=== PATIENT | female | born 1945 | race Caucasian/White ===

== ENCOUNTER 2017-09-16 17:16 | Emergency (ER) | payer OTHER, MEDICARE ==
--- NOTE | 2017-09-16 17:22 | PDOC ---
History of Present Illness <Beckie Davila - Last Filed: 09/16/17 18:32> - General History Source: Patient Exam Limitations: No Limitations - History of Present Illness Initial Comments: 09/16/17 18:44 The patient is a 72 year old female with a significant PMH of lung ca, COPD, and hypertension who presents to the emergency department with a left arm injury since 2 days ago. The patient reports that she fell and hit her hand and wednesday night. The patient reports associated pain and bruising of her left arm . the patient reports that she went to an urgent care facility today by which they sent her to the ED to get a CT. The patient reports that she has never had an incident like this in the past. She reports some instances of intermittent vomiting non associated with her injury. She denies any other symptoms. She denies and fever, chills,nausea, diarrhea, constipation or urinary symptoms the patient denies any chest pain, shortness of breath, headache and dizziness. The patient denies any other complaints. <Marcy Toussaint - Last Filed: 09/16/17 18:46> - General Chief Complaint: Injury Stated Complaint: left arm pain fall Time Seen by Provider: 09/16/17 17:22 Past History - Past Medical History Cancer: Yes (LUNG-SMALL Cells, PULMONARY FIBROSIS) COPD: Yes (EMPHYSEMA) HTN: Yes - Surgical History Abdominal Surgery: Yes (HERNIA WITH MESH) Lung Surgery: (rt lung wedge resection 2013) Orthopedic Surgery: (Rt shoulder Replacement 01/02) - Suicide/Smoking/Psychosocial Hx Smoking History: Current every day smoker Have you smoked in the past 12 months: Yes Number of Cigarettes Smoked Daily: 20 'Breaking Loose' booklet given: 02/20/15 Hx Alcohol Use: No Drug/Substance Use Hx: No Substance Use Type: None <Beckie Davila - Last Filed: 09/16/17 18:32> <Marcy Toussaint - Last Filed: 09/16/17 18:46> - Past Medical History Allergies/Adverse Reactions: Allergies Allergy/AdvReac Type Severity Reaction Status Date / Time Penicillins Allergy Hives Verified 09/16/17 17:20 Home Medications: Ambulatory Orders Losartan Potassium 50 mg PO DAILY 02/20/15 Mometasone/Formoterol [Dulera 200 Mcg/5 Mcg Inhaler] 2 inh IH BID 02/20/15 Tiotropium [place] [Spiriva] 1 inh PO DAILY 02/20/15 Zolpidem Tartrate [Ambien] 5 mg PO HS 02/20/15 Diltiazem Cd [Cardizem Cd -] 120 mg PO DAILY #1 cap.cd.24h 02/28/15 Metoprolol Tartrate [Lopressor -] 50 mg PO BID #1 tablet 02/28/15 Potassium Chloride [K-Dur -] 20 meq PO DAILY #1 tablet.er 02/28/15 Apixaban [Eliquis] 5 mg PO BID 09/16/17 Furosemide [Lasix -] 20 mg PO DAILY 09/16/17 Review of Systems - Review of Systems Able to Perform ROS?: Yes Comments:: 09/16/17 18:45 GENERAL/CONSTITUTIONAL: No fever or chills. No weakness. HEAD, EYES, EARS, NOSE AND THROAT: No change in vision. No ear pain or discharge. No sore throat. CARDIOVASCULAR: No chest pain or shortness of breath. RESPIRATORY: No cough, wheezing, or hemoptysis. GASTROINTESTINAL: No nausea, vomiting, diarrhea or constipation. GENITOURINARY: No dysuria, frequency, or change in urination. MUSCULOSKELETAL: +(+)left arm injury.. No neck or back pain. SKIN: No rash NEUROLOGIC: No headache, vertigo, loss of consciousness, or change in strength/ sensation. ENDOCRINE: No increased thirst. No abnormal weight change. HEMATOLOGIC/LYMPHATIC: No anemia, easy bleeding, or history of blood clots. ALLERGIC/IMMUNOLOGIC: No hives or skin allergy. <Marcy Toussaint - Last Filed: 09/16/17 18:46> *Physical Exam - Physical Exam Comments: GENERAL: Awake, alert, and fully oriented, in no acute distress HEAD: No signs of trauma EYES: PERRLA, EOMI, sclera anicteric, conjunctiva clear ENT: Auricles normal inspection, hearing grossly normal, nares patent, oropharynx clear without exudates. Moist mucosa NECK: Normal ROM, supple, no lymphadenopathy, JVD, or masses EXTREMITIES: L upper arm and elbow with ecchymosis. +FROM. Remainder of extremities with normal range of motion, no edema. No clubbing or cyanosis. No cords, erythema, or tenderness NEUROLOGICAL: Cranial nerves II through XII grossly intact. Normal speech, normal gait SKIN: Warm, Dry, normal turgor, no rashes. +Skin tear 2.5 cm diameter to L upper arm. <Beckie Davila - Last Filed: 09/16/17 18:32> - Vital Signs Last Vital Signs Temp Pulse Resp BP Pulse Ox 97.7 F 65 18 150/93 98 09/16/17 17:19 09/16/17 17:19 09/16/17 17:19 09/16/17 18:15 09/16/17 17:19 <Marcy Toussaint - Last Filed: 09/16/17 18:46> Medical Decision Making - Medical Decision Making 09/16/17 18:32 Skin tear dressed with xeroform and sterile gauze. Counseled patient not to use peroxide, as this may cause damage to tissue. Stable for DC home. <Beckie Davila - Last Filed: 09/16/17 18:32> *DC/Admit/Observation/Transfer - Discharge Dispostion Decision to Admit order: No <Beckie Davila - Last Filed: 09/16/17 18:32> - Attestations Scribe Attestion: 09/16/17 18:45 Documentation prepared by Marcy Toussaint, acting as medical fee clerk for Beckie Davila MD. <Marcy Toussaint - Last Filed: 09/16/17 18:46> Diagnosis at time of Disposition: Skin tear Fall Qualifiers: Encounter type: initial encounter Qualified Code(s): W19.XXXA - Unspecified fall, initial encounter Shoulder pain Qualifiers: Chronicity: acute Laterality: left Qualified Code(s): M25.512 - Pain in left shoulder - Discharge Dispostion Disposition: HOME Condition at time of disposition: Stable - Referrals Referrals: Joshua Thomas MD [Staff Physician] - - Patient Instructions Printed Discharge Instructions: Smoking Cessation for Older Adults: It's Not Too Late!, How to Prevent Falls, DI for Abrasion
[2017-09-16 17:37] VITALS: PULSE 65; TEMP 97.7; BMI 23.8
[2017-09-16 18:17] VITALS: BP 150/93
== END 2017-09-16 18:42 | disposition home or self-care (01) ==
LOC: FER 17:16
DX: S41.102D Unspecified open wound of left upper arm, subsequent encounter (principal); W18.30XD Fall on same level, unspecified, subsequent encounter; M25.512 Pain in left shoulder; I10 Essential (primary) hypertension; J43.9 Emphysema, unspecified; J84.10 Pulmonary fibrosis, unspecified; F17.210 Nicotine dependence, cigarettes, uncomplicated; Z85.118 Personal history of other malignant neoplasm of bronchus and lung; Z88.0 Allergy status to penicillin
CPT/HCPCS: 73060-TC-LT-FY; 73070-TC-LT-FY; 99282-25

== ENCOUNTER 2018-02-03 15:32 | Emergency (ER) | payer OTHER, MEDICARE ==
--- NOTE | 2018-02-03 15:46 | PDOC ---
Rapid Medical Evaluation Time Seen by Provider: 02/03/18 15:40 Medical Evaluation: Allergies Allergy/AdvReac Type Severity Reaction Status Date / Time Penicillins Allergy Hives Verified 02/03/18 15:35 02/03/18 15:41 Pt presents to the ED for coughing up blood for one week. Was seen by Dr. Lincoln. Pt reports having swelling in her L leg yesterday. Exam: NAD, No edema to the L leg at this time Orders: Labs, CXR, IV, EKG, Leg US Pt to proceed to the ED for further evaluation Discharge Disposition - Diagnosis Coughing up blood - Referrals Referrals: Joshua Thomas MD [Primary Care Provider] - - Patient Instructions - Post Discharge Activity
[2018-02-03 15:47] VITALS: TEMP 97.8; BMI 28.3
--- NOTE | 2018-02-03 16:08 | PDOC ---
Attending Attestation - HPI HPI: 72 y.o female with pmhx of lung CA, COPD, HTN, who presents today with hemoptysis 1 week ago. She was prescribed azithromycin and the hemoptysis resolved. However, she continues to experience SOB while lying down. 02/03/18 17:32 - Physicial Exam PE: GENERAL: Awake, alert, and fully oriented, in no acute distress. Speaking in full sentences. HEAD: No signs of trauma EYES: PERRLA, EOMI, sclera anicteric, conjunctiva clear ENT: Auricles normal inspection, hearing grossly normal, nares patent, oropharynx clear without exudates. Moist mucosa NECK: Normal ROM, supple, no lymphadenopathy, JVD, or masses LUNGS: +coarse lung sounds bilaterally with wheezing and rhonchi. HEART: Regular rate and rhythm, normal S1 and S2, no murmurs, rubs or gallops ABDOMEN: Soft, nontender, normoactive bowel sounds. No guarding, no rebound. No masses EXTREMITIES: There is venous stasis swelling of the bilateral lower extremities. No calf tenderness. Normal range of motion. No clubbing or cyanosis. No cords, erythema, or tenderness NEUROLOGICAL: Cranial nerves II through XII grossly intact. Normal speech, normal gait SKIN: Warm, Dry, normal turgor, no rashes or lesions noted. 02/03/18 17:36 <Josephine Patel - Last Filed: 02/03/18 17:36> - Resident Resident Name: Kassidy Burrows - ED Attending Attestation I have performed the following: I have examined & evaluated the patient, The case was reviewed & discussed with the resident, I agree w/resident's findings & plan, Exceptions are as noted - Medical Decision Making 02/03/18 16:07 I, Dr. Leslie Starks, DO, attest that this document has been prepared under my direction and personally reviewed by me in its entirety. I further attest, that it accurately reflects all work, treatment, procedures and medical decision -making performed by me. 02/03/18 17:00 a/p: 72yo female with coughing up blood last week which has since resolved and poss pna vs chf vs copd -states change in cough x 2 weeks -hemoptysis last week - seen by Dr. Thomas who put her on azithromycin, which improved her cough and hemoptysis resolved -no f/c -still sob when she lays flat -hx of chf and copd -will send labs, bnp -cxr -bedside ultrasound negative for DVT and +b lines to RUL, RLL, LLL -poss mild chf - will send labs -pt is NAD and speaking in full sentences 02/03/18 20:33 cxr clear duplex ultrasound +bakers cyst but no dvt labs stable call placed to PMD 02/03/18 21:56 pt feeling better and requesting to go home stable for d/c to home for follow up with Dr. Thomas as an outpt <Leslie Starks - Last Filed: 02/03/18 21:57> Heart Score/ECG Review - ECG Intrepretation Comment:: 02/03/18 17:30 afib at 53, l axis, q waves septally that are age indeterminate, q waves inferiorly that are age indeterminate, no acute st/t wave findings <Leslie Starks - Last Filed: 02/03/18 21:57>
[2018-02-03 17:28] LABS: BASO % 1.2 % (0-2.0); EOS % 0.4 % (0-4.5); HEMATOCRIT 40.6 % (32.4-45.2); LYMPH % 25.6 % (8-40); MCH 36.5 pg (25.7-33.7); MCHC 34.5 g/dl (32.0-36.0); MEAN PLT VOLUME 7.7 fl (7.5-11.1); MONO % 6.8 % (3.8-10.2); PLATELET COUNT 273 K/MM3 (134-434); RBC 3.83 M/mm3 (3.60-5.2); RDW 14.4 % (11.6-15.6); WHITE BLOOD COUNT 7.4 K/mm3 (4.0-10.0)
[2018-02-03] MEDS ORDERED: ACETAMINOPHEN 325 MG TABLET (FP) PO ONE (17:30)
[2018-02-03 17:48] LABS: INR 1.44 (0.83-1.09); PROTHROMBIN TIME (PATIENT) 17.1 SEC (9.7-13.0)
[2018-02-03] MEDS ORDERED: ACETAMINOPHEN 325 MG TABLET (FP) ONE (17:51)
--- NOTE | 2018-02-03 17:56 | PDOC ---
History of Present Illness - General Chief Complaint: Hemoptysis Stated Complaint: PCP SENT Time Seen by Provider: 02/03/18 15:40 History Source: Patient Exam Limitations: No Limitations - History of Present Illness Initial Comments: Pt is a 72 yo F, with PMH of lung CA (multiple resections, chemo, and radiation over past few years), COPD (no home O2 and ambulates on her own), pulmonary fibrosis, HTN, and A-fib (on Eliquis), who is presenting with complaints of hemoptysis 1 week ago which has resolved. Pt states she has clear sputum production at baseline, but about 1 week ago, she noticed "small amounts" of BRB mixed into the sputum. Pt saw her PCP (Dr. Lincoln), who prescribed Azithromycin 250 mg x5 days, which resolved the pts hemoptysis over the next 2 days. Pt currently complains of overall "feeling bad," though she cannot specify what is bothering her. She states she is here because her PCP told her to come to the ER straight after his last visit and wanted a chest x-ray to be done. She also noted that she had LLE swelling "for a few days last week" which has also resolved, and denies any recent travel/bed-rest or worsening SOB. Pt denies any fevers/chills, headache, vision changes, chest pain, palpitations, SOB change from baseline, nausea/vomiting, abdominal pain, urinary symptoms, or diarrhea/constipation. PCP: Dr. Lincoln Pt smokes 1 ppd x40 years. Pt denies alcohol or drug use. Pt denies any recent travel or sick contacts. 02/03/18 18:26 02/03/18 19:26 Past History - Travel Traveled outside of the country in the last 30 days: No Close contact w/someone who was outside of country & ill: No - Past Medical History Allergies/Adverse Reactions: Allergies Allergy/AdvReac Type Severity Reaction Status Date / Time Penicillins Allergy Hives Verified 02/03/18 15:35 Home Medications: Ambulatory Orders Losartan Potassium 50 mg PO DAILY 02/20/15 Mometasone/Formoterol [Dulera 200 Mcg/5 Mcg Inhaler] 2 inh IH BID 02/20/15 Tiotropium [place] [Spiriva] 1 inh PO DAILY 02/20/15 Zolpidem Tartrate [Ambien] 5 mg PO HS 02/20/15 Diltiazem Cd [Cardizem Cd -] 120 mg PO DAILY #1 cap.cd.24h 02/28/15 Metoprolol Tartrate [Lopressor -] 50 mg PO BID #1 tablet 02/28/15 Potassium Chloride [K-Dur -] 20 meq PO DAILY #1 tablet.er 02/28/15 Apixaban [Eliquis] 5 mg PO BID 09/16/17 Furosemide [Lasix -] 20 mg PO DAILY 09/16/17 Cancer: Yes (LUNG-SMALL Cells, PULMONARY FIBROSIS) COPD: Yes (EMPHYSEMA) HTN: Yes Seizures: Yes - Surgical History Abdominal Surgery: Yes (HERNIA WITH MESH) Lung Surgery: (rt lung wedge resection 2013) Orthopedic Surgery: (Rt shoulder Replacement 01/02) - Immunization History Immunization Up to Date: Yes - Suicide/Smoking/Psychosocial Hx Smoking History: Never smoked Have you smoked in the past 12 months: Yes Number of Cigarettes Smoked Daily: 20 Information on smoking cessation initiated: No 'Breaking Loose' booklet given: 02/20/15 Hx Alcohol Use: No Drug/Substance Use Hx: No Substance Use Type: None Review of Systems - Review of Systems Able to Perform ROS?: Yes Is the patient limited Urdu proficient: No Constitutional: Yes: Weight Stable. No: Chills, Diaphoresis, Fever, Loss of Appetite, Weakness HEENTM: No: Blurred Vision, Double Vision, Nose Congestion, Hearing Loss, Throat Pain, Throat Swelling, Difficulty Swallowing Respiratory: Yes: Cough, Productive cough, Hemoptysis. No: Orthopnea, Shortness of Breath, Wheezing Cardiac (ROS): No: Chest Pain, Edema, Irregular Heart Rate, Lightheadedness, Palpitations, Syncope, Chest Tightness ABD/GI: No: Abdominal Distended, Constipated, Diarrhea, Nausea, Poor Appetite, Poor Fluid Intake, Vomiting : No: Burning, Dysuria, Frequency, Hematuria, Pain, Urgency Musculoskeletal: Yes: Back Pain (chronic (scoliosis)). No: Joint Pain, Muscle Weakness Integumentary: Yes: Dryness (b/l LE). No: Rash Neurological: No: Headache, Numbness, Tremors, Weakness, Unsteady Gait, Ataxia, Dizziness Psychiatric: No: Sleep Pattern Change, Change in Appetite Endocrine: No: Increased Urine, Change in Weight Hematologic/Lymphatic: No: Anemia, Blood Clots, Easy Bleeding, Easy Bruising All Other Systems: Reviewed and Negative *Physical Exam - Vital Signs Last Vital Signs Temp Pulse Resp BP Pulse Ox 97.8 F 76 16 142/102 H 100 02/03/18 15:35 02/03/18 15:35 02/03/18 15:35 02/03/18 15:35 02/03/18 15:35 - Physical Exam General Appearance: Yes: Nourished, Appropriately Dressed ED Treatment Course - LABORATORY CBC & Chemistry Diagram: 02/03/18 17:15 02/03/18 17:15 - ADDITIONAL ORDERS Additional order review: 02/03/18 17:15 RBC 3.83 MCV 106.0 H MCHC 34.5 RDW 14.4 MPV 7.7 Neutrophils % 66.0 Lymphocytes % 25.6 Monocytes % 6.8 Eosinophils % 0.4 D Basophils % 1.2 - RADIOLOGY Radiology Studies Ordered: Category Date Time Status DUPLEX VASCUL US-2LEGS [US] Stat Ultrasound 02/03/18 16:37 Ordered Medical Decision Making - Medical Decision Making Pt was seen at bedside, also will be seen by attending Dr. Starks. Pt presenting with complaints of hemoptysis 1 week ago which has resolved. Pt has PMH of lung CA (multiple resections, chemo, and radiation over past few years), COPD (no home O2), pulmonary fibrosis, HTN, and A-fib (on Eliquis). Pt states she has clear sputum production at baseline, but over the past week, she noticed "small amounts" of BRB mixed into the sputum. Pt saw her PCP (Dr. Lincoln), who prescribed Azithromycin 250 mg x5 days, which resolved the pts hemoptysis. Pt currently complains of overall "feeling bad," though she cannot specify what is bothering her. She states she is here because her PCP told her to come to the ER straight after his last visit and wanted a chest x- ray to be done. She also noted that she had LLE swelling "for a few days" which has also received, and denies any recent travel/bed-rest or worsening SOB. Pt denies any fevers/chills, headache, vision changes, chest pain, palpitations, SOB change from baseline, nausea/vomiting, abdominal pain, urinary symptoms, or diarrhea/constipation. PE showed coarse breath sounds and wheezing over left-sided lung nevarez, anterior and posterior. No JVD or heart murmurs. No abdominal tenderness. No pitting pedal edema, but +severe varicose veins b/l LE, with hyperkeratosis on plantar feet b/l, with scaling of skin. Considering pneumonia vs COPD exacerbation vs CHF. Minimal concern for PE, as pt anti-coagulated and lung CA has resolved with resection and chemo. Will obtain b/l LE doppler to r/o clots. Ordered work-up including CBC, CMP, BNP, chest x-ray, and b/l LE doppler. Provided 650 mg PO tylenol for improvement of back pain (pt has scoliosis and baseline back pain, for which she takes tylenol at home. Pending labs to determine CHF vs COPD/pneumonia and further interventions (lasix vs breathing treatment). Will continue to reassess pt and monitor for symptomatic improvement. 02/03/18 17:40 CBC WNL for pt, no increased WBC. Bedside chest US showed b-lines and pleural effusion. Bedside LE doppler showed compressible veins, no obvious clots. 02/03/18 17:59 ECG showed A-flutter, HR 53, QTc 463, QRS 92. Mild LAD, no ST segment changes. 02/03/18 18:07 CMP generally WNL. INR 1.44 BNP 1522. Pending pt chest x-ray and b/l LE doppler US. 02/03/18 18:17 [id number] RAD/CHEST PA & LAT Chest: Cough. 2 views the chest have been submitted. Since 03/28/2015, again is a scoliosis with convexity to the right. There is a large heart, unfolded aorta and it appears to be increased interstitial lung changes. The findings are more prominent on the left than the right are some bullous changes. Increased interstitial changes on the right could represent some chronic lung disease. The angles are sharp and the soft tissues are intact. There are degenerative changes with wedging. There is a right shoulder replacement. Correlation recommended. For more complete evaluation, further imaging with CT may be of help. 02/03/18 19:05 Pt returned from LE doppler. Pt lying 02/03/18 20:30 [id number] US/DUPLEX VASCUL US-2LEGS Bilateral lower extremity venous ultrasound Clinical information given: lower extremity edema, varicosities, evaluate for clot The exam was performed utilizing compression, grayscale, color flow and doppler sonography. There is no sonographic evidence of deep vein thrombosis involving either leg. No obvious superficial thrombophlebitis is noted. If there is clinical concern for possible isolated calf DVT or if there is a clinical diagnosis of uncomplicated superficial thrombophlebitis, then correlation with close follow up sonography is suggested. 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 Note is also made of a 3 x 1 x 1 cm right popliteal fossa cyst. Impression: No DVT is identified involving either leg. Please see above. 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 A 3 x 1 x 1 cm right popliteal fossa cyst is noted. 02/03/18 20:35 Placing call to PCP (Dr. Lincoln) to update on pt status and see if he can see pt in clinic. Awaiting call back from PCP service. 02/03/18 21:07 No call back from PCP service, considering normal lab results and imaging pt can be discharged to home with follow-up. Pt advised to follow-up with PCP in 1- 2 days. Strict return precautions provided with pt understanding. 02/03/18 21:16 *DC/Admit/Observation/Transfer Diagnosis at time of Disposition: COPD (chronic obstructive pulmonary disease) Qualifiers: COPD type: unspecified COPD Qualified Code(s): J44.9 - Chronic obstructive pulmonary disease, unspecified - Discharge Dispostion Disposition: HOME Condition at time of disposition: Improved Decision to Admit order: No - Referrals Referrals: Joshua Thomas MD [Primary Care Provider] - - Patient Instructions Printed Discharge Instructions: DI for Cough -- Adult Additional Instructions: You were seen in the ER today for cough. The results of your labs and imaging today were normal. Please follow-up with your primary care doctor within 1-2 days to discuss your visit and make sure your symptoms have improved. Please return to the ER if you have any worsening pain, development of fevers or chills , loss of consciousness, inability to tolerate food or fluids, or any other concerns. - Post Discharge Activity
[2018-02-03 18:13] LABS: ALBUMIN 3.6 g/dl (3.4-5.0); ALK PHOS 128 U/L (45-117); ANION GAP 10 MMOL/L (8-16); BILIRUBIN,TOTAL 0.6 mg/dL (0.2-1); BLOOD UREA NITROGEN 18 mg/dL (7-18); CALCIUM 8.4 mg/dL (8.5-10.1); CHLORIDE 100 mmol/L (98-107); CO2 24 mmol/L (21-32); CREATININE 0.4 mg/dL (0.55-1.3); GLUCOSE,RANDOM 75 mg/dL (74-106); MAGNESIUM 1.8 mg/dL (1.8-2.4); N-TERMINAL BNP 1522.4 pg/ml (5-125); POTASSIUM 4.5 mmol/L (3.5-5.1); SGOT/AST 16 U/L (15-37); SGPT/ALT 15 U/L (13-61); SODIUM 134 mmol/L (136-145); TOT PROT 7.2 g/dl (6.4-8.2)
[2018-02-03 18:29] LABS: URINE APPEARANCE SLCLOUDY; URINE BILIRUBIN NEGATIVE (<2.0 mg/dL); URINE COLOR LTYELLOW; URINE GLUCOSE (UA) NEGATIVE (NEGATIVE); URINE KETONE NEGATIVE (NEGATIVE); URINE LEUK ESTERASE TRACE (NEGATIVE); URINE NITRITE NEGATIVE (NEGATIVE); URINE PROTEIN NEGATIVE (NEGATIVE); URINE UROBILINOGEN NEGATIVE mg/dL (0.2-1.0)
[2018-02-03 21:57] VITALS: BP 127/83; PULSE 82
--- NOTE | 2018-02-04 08:50 | EKG ---
Test Reason : Blood Pressure : / mmHG Vent. Rate : 053 BPM Atrial Rate : 357 BPM P-R Int : 000 ms QRS Dur : 092 ms QT Int : 494 ms P-R-T Axes : 000 -40 065 degrees QTc Int : 463 ms ATRIAL FLUTTER WITH VARIABLE A-V BLOCK LEFT AXIS DEVIATION SEPTAL INFARCT , AGE UNDETERMINED POSSIBLE INFERIOR INFARCT , AGE UNDETERMINED ABNORMAL ECG Confirmed by CANDY MATHEW MD ([id number]) on 02/04/2018 8:50:24 AM Referred By: Confirmed By:CANDY MATHEW MD
== END 2018-02-03 21:57 | disposition home or self-care (01) ==
LOC: JER 15:32
DX: J44.9 Chronic obstructive pulmonary disease, unspecified (principal); M71.21 Synovial cyst of popliteal space [Baker], right knee; I10 Essential (primary) hypertension; I48.91 Unspecified atrial fibrillation; Z79.01 Long term (current) use of anticoagulants; M54.5 Low back pain; L85.3 Xerosis cutis; R60.0 Localized edema; F17.210 Nicotine dependence, cigarettes, uncomplicated; J84.10 Pulmonary fibrosis, unspecified; Z85.118 Personal history of other malignant neoplasm of bronchus and lung
CPT/HCPCS: 36415; 71046-TC-FY; 80053; 81003; 81015; 82550; 83735; 83880; 84484; 85025; 85610; 86850; 86900; 86901; 93005; 93010; 93970-TC; 99282-25